=== PATIENT | female | born 1935 | race Caucasian/White ===

== ENCOUNTER 2021-06-21 14:09 | Inpatient (IN) ==
[2021-06-21 15:25] LABS: Basophils % 0.1 % (0.0-0.8); Eosinophils % 0.1 % (0.00-10.9); Hematocrit 36.7 VOL% (35.7-47.0); Immature Granulocytes % 0.6 %; Immature Granulocytes Absolute 0.08 #; Lymphocytes # 0.3 10*3/uL (1.4-4.0); Lymphocytes % 2.2 % (21.3-54.2); Mean Corpuscular HGB Conc 32.7 GM/DL (32-36); Mean Platelet Volume 10.4 FL (9.6-12.0); Monocytes % 3.7 % (1.7-12.7); Neutrophils % 93.3 % (38.7-73.9); Platelet Count 210 T/CUMM (130-400); Red Blood Count 3.99 MC/CUMM (3.8-5.5); Red Cell Distribution Width 13.4 % (9.3-17.3)
[2021-06-21] MEDS ORDERED: cefTRIAXone 1,000 MG in SODIUM CHLORIDE 0.9% 100 ML IV STA (15:29)
[2021-06-21] MEDS ORDERED: SODIUM CHLORIDE 0.9% 1,000 ML IV STA (15:29)
[2021-06-21 15:37] LABS: Calcium 9.2 MG/DL (8.5-10.1); Osmolality,Calculated 285.4 MOS/KG (273-304); Potassium 4.4 MMOL/L (3.5-5.1)
[2021-06-21 15:50] LABS: Albumin 3.5 G/DL (3.4-5.0); Bilirubin,Total 0.6 MG/DL (0.20-1.00); Calcium 9.1 MG/DL (8.5-10.1); Osmolality,Calculated 286.4 MOS/KG (273-304); Potassium 4.4 MMOL/L (3.5-5.1); Total Protein 6.7 G/DL (6.4-8.2)
[2021-06-21] MEDS ORDERED: ACETAMINOPHEN 500 MG TABLET ONE (15:54)
[2021-06-21] MEDS ORDERED: ACETAMINOPHEN 500 MG TABLET PO STA (16:04)
[2021-06-21 16:18] LABS: Bilirubin,Urine Negative (Negative); Blood, Urine Negative (Negative); Glucose,Urine (UA) Negative (Negative); Ketones,Urine Negative (Negative); Nitrite,Urine Negative (Negative); Protein,Urine 30 MG/DL; RBC,Urine 1 /HPF (0-4); Squamous Epithelial Cell,Urine Occasional /HPF (0-10); Urine Appearance CLEAR (Clear); Urine Color Yellow (Yellow); Urine Specific Gravity 1.017 (1.001-1.035); Urine Urobilinogen < 2.0 EU/DL (<2.0)
[2021-06-21 17:12] LABS: Lymphocytes 2 % (20-55); Segmented Neutrophils 96 % (50-85); Total Cells Counted 100
[2021-06-21 17:13] LABS: Platelet Estimate Normal
[2021-06-21] MEDS ORDERED: AZITHROMYCIN INJ 500 MG in SODIUM CHLORIDE 0.9% 250 ML IV STA (17:32)
[2021-06-21] MEDS ORDERED: ACETAMINOPHEN 325 MG TABLET PO PRN (17:34)
[2021-06-21] MEDS ORDERED: ONDANSETRON 4 MG/2 ML VIAL IV PRN (17:34)
[2021-06-21] MEDS: SODIUM CHLORIDE 0.9% 1,000 ML IV SCH (20:18)
[2021-06-21] MEDS: KETOROLAC 30 MG/1 ML VIAL IM PRN (22:09)
[2021-06-21] MEDS: DOCUSATE SODIUM 100 MG CAPSULE PO SCH (22:18)
[2021-06-22] MEDS: rOPINIRole 4 MG TABLET PO SCH ×2 (00:50→20:02)
[2021-06-22] MEDS: SODIUM CHLORIDE 0.9% 1,000 ML IV SCH ×3 (02:40→20:02)
[2021-06-22] MEDS: PANTOPRAZOLE 40 MG TABLET PO SCH (09:13)
[2021-06-22] MEDS: DOCUSATE SODIUM 100 MG CAPSULE PO SCH ×2 (09:13→22:19)
[2021-06-22] MEDS: rOPINIRole 1 MG TABLET PO SCH (09:13)
[2021-06-22] MEDS: cefTRIAXone 1,000 MG in SODIUM CHLORIDE 0.9% 100 ML IV SCH (09:17)
[2021-06-22] MEDS: AZITHROMYCIN INJ 500 MG in SODIUM CHLORIDE 0.9% 250 ML IV SCH (10:24)
[2021-06-22] MEDS: MIRABEGRON 25 MG PO SCH (22:19)
[2021-06-23] MEDS: SODIUM CHLORIDE 0.9% 1,000 ML IV SCH ×3 (02:21→22:06)
[2021-06-23] MEDS: cefTRIAXone 1,000 MG in SODIUM CHLORIDE 0.9% 100 ML IV SCH (09:06)
[2021-06-23] MEDS: PANTOPRAZOLE 40 MG TABLET PO SCH (09:07)
[2021-06-23] MEDS: DOCUSATE SODIUM 100 MG CAPSULE PO SCH ×2 (09:07→22:07)
[2021-06-23] MEDS: rOPINIRole 1 MG TABLET PO SCH (09:08)
[2021-06-23] MEDS: AZITHROMYCIN INJ 500 MG in SODIUM CHLORIDE 0.9% 250 ML IV SCH (09:58)
[2021-06-23] MEDS: MIRABEGRON 25 MG PO SCH (18:26)
[2021-06-23] MEDS: rOPINIRole 4 MG TABLET PO SCH (18:31)
[2021-06-24] MEDS: SODIUM CHLORIDE 0.9% 1,000 ML IV SCH ×2 (03:31→16:44)
[2021-06-24] MEDS: PANTOPRAZOLE 40 MG TABLET PO SCH (08:34)
[2021-06-24] MEDS: rOPINIRole 1 MG TABLET PO SCH (08:34)
[2021-06-24] MEDS: DOCUSATE SODIUM 100 MG CAPSULE PO SCH ×2 (08:34→21:40)
[2021-06-24] MEDS: cefTRIAXone 1,000 MG in SODIUM CHLORIDE 0.9% 100 ML IV SCH (08:40)
[2021-06-24] MEDS: AZITHROMYCIN INJ 500 MG in SODIUM CHLORIDE 0.9% 250 ML IV SCH (09:32)
[2021-06-24] MEDS: KETOROLAC 30 MG/1 ML VIAL IM PRN (10:33)
[2021-06-24] MEDS ORDERED: hydrALAZINE 20 MG/1 ML VIAL IV ONE (11:48)
[2021-06-24] MEDS: SPIRONOLACTONE 25 MG TABLET PO SCH ×2 (12:16→21:40)
[2021-06-24 14:45] LABS: Basophils % 0.3 % (0.0-0.8); Eosinophils # 0.2 10*3/uL (0.0-0.87); Hemoglobin 10.2 GM/DL (12.0-16.0); Immature Granulocytes % 1.2 %; Immature Granulocytes Absolute 0.11 #; Lymphocytes # 0.9 10*3/uL (1.4-4.0); Lymphocytes % 9.8 % (21.3-54.2); Mean Corpuscular HGB Conc 32.9 GM/DL (32-36); Mean Corpuscular Volume 92.8 FL (87-102); Mean Platelet Volume 10.5 FL (9.6-12.0); Monocytes % 7.2 % (1.7-12.7); Neutrophils % 79.5 % (38.7-73.9); Platelet Count 200 T/CUMM (130-400); Red Blood Count 3.34 MC/CUMM (3.8-5.5); Red Cell Distribution Width 13.8 % (9.3-17.3); White Blood Count 8.8 T/CUMM (4-12)
[2021-06-24 15:04] LABS: Alanine Aminotransferase 17 U/L (13-56); Albumin 2.3 G/DL (3.4-5.0); Alkaline Phosphatase 86 U/L (45-117); Aspartate Amino Transferase 11 U/L (0-37); Bilirubin,Total < 0.39 MG/DL (0.20-1.00); Blood Urea Nitrogen 18 MG/DL (7-18); Calcium 8.8 MG/DL (8.5-10.1); Carbon Dioxide 21 MMOL/L (21-32); Estimated Glom Filtration Rate 77 ML/MIN; Glucose 119 MG/DL (74-106); Osmolality,Calculated 285.1 MOS/KG (273-304); Potassium 4.7 MMOL/L (3.5-5.1); Sodium 142 MMOL/L (136-145); Total Protein 5.5 G/DL (6.4-8.2)
[2021-06-24] MEDS ORDERED: POTASSIUM CHLORIDE RIDER 10 MEQ/100 ML PREMIX IV PRN (16:06)
[2021-06-24] MEDS ORDERED: POTASSIUM CHLORIDE 20 MEQ TABLET PO PRN (16:06)
[2021-06-24] MEDS ORDERED: MAGNESIUM SULF RIDER 4 GM/100 ML PREMIX IV PRN (16:06)
[2021-06-24] MEDS: MAGNESIUM SULF RIDER 2 GM/50 ML PREMIX IV PRN ×2 (16:54→22:44)
[2021-06-24] MEDS: hydrALAZINE 20 MG/1 ML VIAL IV PRN (16:59)
[2021-06-24] MEDS: ALBUTEROL/IPRATROPIUM 3 ML NEB RESP TX SCH (19:20)
[2021-06-24] MEDS: VALSARTAN 160 MG TABLET PO SCH (21:39)
[2021-06-24] MEDS: rOPINIRole 4 MG TABLET PO SCH (21:40)
[2021-06-24] MEDS: methylPREDNISolone SOD SUC 40 MG/1 ML VIAL IV SCH (22:43)
[2021-06-24] MEDS: MIRABEGRON 25 MG PO SCH (22:55)
[2021-06-25] MEDS: ALBUTEROL/IPRATROPIUM 3 ML NEB RESP TX SCH ×7 (00:47→23:07)
[2021-06-25 05:40] LABS: Basophils % 0.3 % (0.0-0.8); Hemoglobin 10.4 GM/DL (12.0-16.0); Immature Granulocytes % 1.5 %; Immature Granulocytes Absolute 0.11 #; Lymphocytes # 0.2 10*3/uL (1.4-4.0); Mean Corpuscular HGB Conc 31.5 GM/DL (32-36); Mean Corpuscular Volume 93.5 FL (87-102); Mean Platelet Volume 10.6 FL (9.6-12.0); Monocytes % 1.8 % (1.7-12.7); Neutrophils % 93.4 % (38.7-73.9); Platelet Count 218 T/CUMM (130-400); Red Blood Count 3.53 MC/CUMM (3.8-5.5); White Blood Count 7.6 T/CUMM (4-12)
[2021-06-25 06:06] LABS: Alanine Aminotransferase 16 U/L (13-56); Albumin 2.3 G/DL (3.4-5.0); Alkaline Phosphatase 83 U/L (45-117); Aspartate Amino Transferase 8 U/L (0-37); Bilirubin,Total < 0.39 MG/DL (0.20-1.00); Blood Urea Nitrogen 17 MG/DL (7-18); Calcium 9.1 MG/DL (8.5-10.1); Carbon Dioxide 19 MMOL/L (21-32); Estimated Glom Filtration Rate 67 ML/MIN; Glucose 202 MG/DL (74-106); Osmolality,Calculated 286.4 MOS/KG (273-304); Potassium 4.3 MMOL/L (3.5-5.1); Sodium 140 MMOL/L (136-145); Total Protein 5.9 G/DL (6.4-8.2)
[2021-06-25 07:03] LABS: Band Neutrophils 2 % (0-10); Lymphocytes 3 % (20-55); Segmented Neutrophils 94 % (50-85); Total Cells Counted 100
[2021-06-25 07:06] LABS: Hypochromia 1+; Platelet Estimate Normal
[2021-06-25] MEDS: SPIRONOLACTONE 25 MG TABLET PO SCH ×2 (09:19→20:50)
[2021-06-25] MEDS: PANTOPRAZOLE 40 MG TABLET PO SCH (09:19)
[2021-06-25] MEDS: DOCUSATE SODIUM 100 MG CAPSULE PO SCH ×3 (09:19→22:02)
[2021-06-25] MEDS: rOPINIRole 1 MG TABLET PO SCH (09:19)
[2021-06-25] MEDS: methylPREDNISolone SOD SUC 40 MG/1 ML VIAL IV SCH ×2 (09:20→20:50)
[2021-06-25] MEDS: cefTRIAXone 1,000 MG in SODIUM CHLORIDE 0.9% 100 ML IV SCH (09:20)
[2021-06-25] MEDS: AZITHROMYCIN INJ 500 MG in SODIUM CHLORIDE 0.9% 250 ML IV SCH (11:12)
[2021-06-25] MEDS: rOPINIRole 4 MG TABLET PO SCH (19:16)
[2021-06-25] MEDS: VALSARTAN 160 MG TABLET PO SCH (20:51)
[2021-06-25] MEDS: MIRABEGRON 25 MG PO SCH (21:50)
[2021-06-26] MEDS: ALBUTEROL/IPRATROPIUM 3 ML NEB RESP TX SCH ×6 (02:45→22:20)
[2021-06-26] MEDS: cefTRIAXone 1,000 MG in SODIUM CHLORIDE 0.9% 100 ML IV SCH (10:14)
[2021-06-26] MEDS: rOPINIRole 1 MG TABLET PO SCH (10:15)
[2021-06-26] MEDS: SPIRONOLACTONE 25 MG TABLET PO SCH ×2 (10:15→20:32)
[2021-06-26] MEDS: DOCUSATE SODIUM 100 MG CAPSULE PO SCH ×2 (10:15→20:32)
[2021-06-26] MEDS: PANTOPRAZOLE 40 MG TABLET PO SCH (10:16)
[2021-06-26] MEDS: methylPREDNISolone SOD SUC 40 MG/1 ML VIAL IV SCH ×2 (10:16→20:33)
[2021-06-26] MEDS: AZITHROMYCIN INJ 500 MG in SODIUM CHLORIDE 0.9% 250 ML IV SCH (11:14)
[2021-06-26] MEDS: hydrALAZINE 20 MG/1 ML VIAL IV PRN ×2 (13:00→22:42)
[2021-06-26] MEDS ORDERED: FUROSEMIDE 40 MG/4 ML VIAL IV ONE (15:26)
[2021-06-26] MEDS: rOPINIRole 4 MG TABLET PO SCH (18:34)
[2021-06-26] MEDS: MIRABEGRON 25 MG PO SCH (18:38)
[2021-06-26] MEDS: VALSARTAN 160 MG TABLET PO SCH (20:32)
[2021-06-27] MEDS: ALBUTEROL/IPRATROPIUM 3 ML NEB RESP TX SCH (03:59)
[2021-06-27] MEDS: cefTRIAXone 1,000 MG in SODIUM CHLORIDE 0.9% 100 ML IV SCH (09:07)
[2021-06-27] MEDS: SPIRONOLACTONE 25 MG TABLET PO SCH (09:09)
[2021-06-27] MEDS: PANTOPRAZOLE 40 MG TABLET PO SCH (09:09)
[2021-06-27] MEDS: AZITHROMYCIN INJ 500 MG in SODIUM CHLORIDE 0.9% 250 ML IV SCH (09:10)
[2021-06-27] MEDS: methylPREDNISolone SOD SUC 40 MG/1 ML VIAL IV SCH (09:12)
[2021-06-27] MEDS: rOPINIRole 1 MG TABLET PO SCH (09:14)
[2021-06-27] MEDS: DOCUSATE SODIUM 100 MG CAPSULE PO SCH (09:14)
[2021-06-27 10:43] VITALS: BP 182/50
== END 2021-06-27 11:20 | disposition home health service (06) | DRG 194 ==
LOC: N.ED 14:09 → N.3E 14:09
PROVIDERS: ADMIT Family Medicine; ATTEND Family Medicine